=== PATIENT | male | born 1990 | race African-American/Black ===

== ENCOUNTER 2017-03-25 08:57 | Emergency (ER) | payer SELFPAY ==
[~2017-03-25] VITALS: Ht 175.3 cm; Wt 65.9 kg
[2017-03-25 09:07] VITALS: TEMP 98.7
[2017-03-25] MEDS ORDERED: AMOXICILLIN 50500 MG PO (09:44)
[2017-03-25] MEDS ORDERED: ILOTYCIN5 MG/GM OP (09:45)
[2017-03-25 09:50] VITALS: PULSE 68
== END 2017-03-25 09:50 | disposition home or self-care (01) ==
LOC: COL.ER 08:57
DX: J02.9 Acute pharyngitis, unspecified (principal); H10.9 Unspecified conjunctivitis